=== PATIENT | male | born 1970 | race Caucasian/White ===

== ENCOUNTER 2024-03-05 14:24 | Emergency (ER) | payer MEDICAID ==
[~2024-03-05] VITALS: Ht 167.6 cm; Wt 90.8 kg
[2024-03-05] MEDS ORDERED: AMOX500C2 PO (16:05)
[2024-03-05 16:08] VITALS: BP 132/67; PULSE 74; RESP 14; TEMP 97.8; O2SAT 98
== END 2024-03-05 16:10 | disposition home or self-care (01) ==
LOC: ER 14:27
DX: T19.4XXA Foreign body in penis, initial encounter (principal); N48.21 Abscess of corpus cavernosum and penis; I10 Essential (primary) hypertension; W44.8XXA Other foreign body entering into or through a natural orifice, initial encounter
CPT/HCPCS: 99284